=== PATIENT | female | born 1945 | race Caucasian/White ===

== ENCOUNTER 2016-06-04 17:50 | Emergency (ER) | payer MEDICARE, OTHER | END 2016-06-05 01:10 | disposition home or self-care (01) | LOC: ER 17:50 | DX: R10.84 Generalized abdominal pain (principal); K59.00 Constipation, unspecified; Z98.890 Other specified postprocedural states; E03.9 Hypothyroidism, unspecified; K21.9 Gastro-esophageal reflux disease without esophagitis | CPT/HCPCS: 36415; 74022; 80053; 83605; 85025; 85610; 85730 ==

== ENCOUNTER 2016-06-07 09:40 | Emergency (ER) | payer MEDICARE, OTHER | END 2016-06-07 12:20 | disposition home or self-care (01) | LOC: ER 09:40 | DX: K59.00 Constipation, unspecified (principal); E03.9 Hypothyroidism, unspecified; K21.9 Gastro-esophageal reflux disease without esophagitis; Z87.891 Personal history of nicotine dependence | CPT/HCPCS: 74022 ==